=== PATIENT | female | born 1990 | race Caucasian/White ===

== ENCOUNTER 2021-04-17 08:08 | Emergency (ER) | payer MEDICAID, OTHER ==
[~2021-04-17] VITALS: Ht 167.6 cm; Wt 68.1 kg
[2021-04-17] MEDS ORDERED: SODIUM CHLORIDE 0.9% 1,000 ML IV ONE (08:30)
[2021-04-17] MEDS ORDERED: DiphenhydrAMINE HCL 50 MG/ML VIAL IVP ONE (08:30)
[2021-04-17 09:06] LABS: BASOPHILS % (AUTO) 0.3 % (0.0-2.0); EOSINOPHILS % (AUTO) 1.7 % (1.0-6.0); HEMATOCRIT 37.3 % (36-46); HEMOGLOBIN 12.6 g/dL (12.0-16.0); LYMPHOCYTES # (AUTO) 1.7 K/uL (1.0-4.8); LYMPHOCYTES % (AUTO) 29.2 % (22.0-44.0); MEAN CORPUSCULAR HEMOGLOBIN 30.1 pg (26.0-34.0); MEAN CORPUSCULAR HGB CONC 33.9 G/dL (31.0-37.0); MEAN CORPUSCULAR VOLUME 89 fL (80-100); MONOCYTES # (AUTO) 0.4 K/uL (0.1-1.0); MONOCYTES % (AUTO) 6.4 % (2.0-9.0); NEUTROPHILS # (AUTO) 3.7 K/uL (1.8-7.7); NEUTROPHILS % (AUTO) 62.4 % (40.0-70.0); PLATELET COUNT (AUTO) 162 K/uL (150-450); RED CELL DISTRIBUTION WIDTH 13.3 % (11.5-14.5)
[2021-04-17 09:13] LABS: CALCIUM, TOTAL 8.7 mg/dL (8.8-10.5); CARBON DIOXIDE 25 mmol/L (22-29); CHLORIDE 105 mmol/L (98-107); CREATININE 0.84 mg/dL (0.60-1.30); GLOMERULAR FILTR. RATE CALC > 60 mL/min (>60); GLUCOSE,RANDOM 100 mg/dL (70-110); UREA NITROGEN, BLOOD 18 mg/dL (7-18)
[2021-04-17 09:16] LABS: ANION GAP 10 mmol/L (8-16); POTASSIUM 3.9 mmol/L (3.5-5.1); SODIUM SERUM 140 mmol/L (136-145)
[2021-04-17 09:34] LABS: ALANINE AMINOTRANSFERASE 14 U/L (12-78); ALBUMIN 3.6 g/dL (3.4-5.0); ALKALINE PHOSPHATASE 69 U/L (46-116); ASPARTATE AMINOTRANSFERASE 9 U/L (15-37); BILIRUBIN,TOTAL 0.6 mg/dL (0.1-1.0); HCG,QUANTITATIVE < 1 mIU/mL (0-6); TOTAL PROTEIN, SERUM 7.2 g/dL (6.4-8.2)
[2021-04-17 10:46] VITALS: BP 130/78
== END 2021-04-17 10:48 | disposition home or self-care (01) ==
LOC: EMS 08:12
DX: R51.9 Headache, unspecified (principal); F12.90 Cannabis use, unspecified, uncomplicated; R10.2 Pelvic and perineal pain
CPT/HCPCS: 36415; 80053; 84702; 85025; 96361; 96374; 99283; J1200; J7030

== ENCOUNTER 2022-08-11 12:46 | Emergency (ER) | payer OTHER ==
[~2022-08-11] VITALS: Ht 167.6 cm; Wt 68.1 kg
[2022-08-11 12:51] VITALS: BP 134/68
[2022-08-11] MEDS ORDERED: DIPH50 PO (16:08)
== END 2022-08-11 17:31 | disposition home or self-care (01) ==
LOC: EMS 12:53
DX: T63.441A Toxic effect of venom of bees, accidental (unintentional), initial encounter (principal); F12.90 Cannabis use, unspecified, uncomplicated; M79.671 Pain in right foot; Y92.89 Other specified places as the place of occurrence of the external cause
CPT/HCPCS: 99282; Z7502

== ENCOUNTER 2024-04-19 10:19 | Emergency (ER) | payer OTHER ==
[~2024-04-19] VITALS: Ht 170.2 cm; Wt 70.5 kg
[~2024-04-19 10:19] MED LIST: DIPH50 PO
[2024-04-19 10:22] VITALS: BP 113/64; PULSE 68; RESP 16; TEMP 97.9
[2024-04-19] MEDS ORDERED: CLOT15CR29 TP (11:25)
== END 2024-04-19 11:41 | disposition home or self-care (01) ==
LOC: EMS 10:19
DX: B35.4 Tinea corporis (principal); F12.90 Cannabis use, unspecified, uncomplicated
CPT/HCPCS: 99282; Z7502

== ENCOUNTER 2024-11-02 12:08 | Emergency (ER) | payer OTHER ==
[~2024-11-02] VITALS: Ht 167.6 cm; Wt 68.2 kg
[~2024-11-02 12:08] MED LIST changes: +CLOT15CR29 TP; -DIPH50 PO
[2024-11-02 12:11] VITALS: TEMP 99.1
[2024-11-02] MEDS: ACETAMINOPHEN 325 MG TABLET PO ONE (12:41)
[2024-11-02] MEDS: KETOROLAC TROMETHAMINE 30 MG/ML VIAL IM ONE (12:41)
[2024-11-02 12:45] LABS: COVID AG,FIA SOURCE NASAL SWAB
[2024-11-02 13:38] LABS: SARS-COV2 (COVID) ANTIGEN,FIA Negative (Negative)
[2024-11-02 13:39] LABS: INFLUENZA TYPE A NEGATIVE FOR TYPE A (NEGATIVE); INFLUENZA TYPE B NEGATIVE FOR TYPE B (NEGATIVE)
[2024-11-02 14:00] VITALS: BP 105/60; PULSE 95; RESP 16; O2SAT 100
== END 2024-11-02 14:18 | disposition home or self-care (01) ==
LOC: EMS 12:08
DX: J06.9 Acute upper respiratory infection, unspecified (principal); B97.89 Other viral agents as the cause of diseases classified elsewhere; R07.89 Other chest pain; F12.90 Cannabis use, unspecified, uncomplicated; Z20.822 Contact with and (suspected) exposure to COVID-19
CPT/HCPCS: 99284; 71045; 87426; 87804; 96372; J1885